=== PATIENT | female | born 1980 | race Asian ===

== ENCOUNTER 2017-02-02 06:00 | Day surgery (SDC) | payer BC ==
[~2017-02-02] VITALS: Ht 160 cm; Wt 47.6 kg
[2017-02-02] MEDS ORDERED: CEFAZOLIN SOD 1 GM/ ISO 50 ML PREMIX IV ONE (07:00)
[2017-02-02] MEDS ORDERED: DEXAMETHASONE SOD PHOSPHATE 4 MG/ML VIAL IVP ONE (07:33)
[2017-02-02] MEDS ORDERED: SEVOFLURANE 15 MIN GAS INH ONE (07:33)
[2017-02-02] MEDS ORDERED: PROPOFOL 200MG/ 20ML VIAL (DIPRIVAN) IV ONE (07:33)
[2017-02-02] MEDS ORDERED: KETOROLAC TROMETHAMINE 30 MG VIAL IVP ONE (07:33)
[2017-02-02] MEDS ORDERED: ROCURONIUM BROMIDE 10 MG/ML (ZEMURON) IV ONE (07:33)
[2017-02-02] MEDS ORDERED: MIDAZOLAM HCL 5 MG/5 ML VIAL IVP ONE (07:33)
[2017-02-02] MEDS ORDERED: fentaNYL CITRATE/PF 100 MCG/2 ML AMP IVP ONE (07:33)
[2017-02-02] MEDS ORDERED: LR 1,000 ML IV.SOLN IV ONE (07:33)
[2017-02-02] MEDS ORDERED: LR 1,000 ML IV ONE (07:46)
[2017-02-02] MEDS ORDERED: CEFAZOLIN 1 GM IVPB PREMIX 50 ML IV ONE (07:53)
[2017-02-02] MEDS ORDERED: fentaNYL CITRATE/PF 100 MCG/2 ML AMP IVP PRN (08:00)
[2017-02-02] MEDS ORDERED: DIPHENHYDRAMINE INJ 50 MG/ML VIAL IVP PRN (08:00)
[2017-02-02] MEDS ORDERED: NALBUPHINE HCL 10 MG/ML AMP IVP PRN (08:00)
[2017-02-02] MEDS ORDERED: ONDANSETRON HCL 4 MG/2 ML VIAL IVP PRN ×3 (08:00→09:45)
[2017-02-02] MEDS ORDERED: NALOXONE HCL 0.4 MG/ML AMP (NARCAN) IVP PRN (08:00)
[2017-02-02] MEDS ORDERED: ePHEDrine sulfate 50 MG/ML VIAL IVP PRN (08:00)
[2017-02-02] MEDS ORDERED: KETOROLAC TROMETHAMINE 30 MG VIAL IM PRN (08:00)
[2017-02-02] MEDS ORDERED: OXYCODONE/ACETAMINOPHEN 5-325 TABLET PO PRN (09:45)
[2017-02-02] MEDS ORDERED: HYDROcodone/ACETAMIN 5-325 MG TAB (NORCO/ VICODIN) PO PRN (09:45)
[2017-02-02 10:15] VITALS: BP_SYST 93
== END 2017-02-02 11:15 | disposition home or self-care (01) ==
LOC: SDS 06:00 → SMU 07:03 → SDS 11:15
PROVIDERS: ATTEND Specialist
DX: Z30.2 Encounter for sterilization (principal); Z87.42 Personal history of other diseases of the female genital tract; R00.1 Bradycardia, unspecified
CPT/HCPCS: 58558; 58661; C1727; J0690; J1100; J1885; J2250; J2704; J3010; J7120